=== PATIENT | female | born 1950 | race Asian ===

== ENCOUNTER 2017-11-13 11:02 | Outpatient (CLI) | payer BC ==
--- NOTE | 2017-11-13 12:16 | RAD ---
TWO VIEW CHEST: Indications: Chest pain. Back pain. Comparison: 06-11-04 FINDINGS: The lungs are clear of infiltrate. No effusion. Heart size upper normal and stable. Mild vascular eng orgement. Osseous structures unremarkable. IMPRESSION: No evidence of acute process. POS: [facility]
== END 2017-11-13 11:03 | disposition home or self-care (01) ==
LOC: SCSRAD 11:02
PROVIDERS: ATTEND Family Medicine
DX: R05 Cough (principal)
CPT/HCPCS: 36415; 71046; 80053; 80061; 81001; 82043; 84443; 85025

== ENCOUNTER 2019-04-28 15:12 | Outpatient (CLI) | payer BC, MEDICARE ==
--- NOTE | 2019-04-28 16:18 | MMO ---
Bilateral MAMMO Bilat Screen [facility]. CLINICAL HISTORY: Patient is 68 years old and is seen for screening. The patient has no family history of breast cancer. The patient has no personal history of cancer. VIEWS: The views performed were: bilateral craniocaudal with tomosynthesis and bilateral mediolateral oblique with tomosynthesis. FILMS COMPARED: The present examination has been compared to prior imaging studies performed at [facility] on 07/15/2013, 07/28/2014, 07/27/2015 and 08/22/2016. This study has been interpreted with the assistance of computer-aided detection. MAMMOGRAM FINDINGS: There are scattered fibroglandular densities. There are no suspicious masses, suspicious calcifications, or new areas of architectural distortion. IMPRESSION: THERE IS NO MAMMOGRAPHIC EVIDENCE OF MALIGNANCY. A ROUTINE FOLLOW-UP MAMMOGRAM IN 1 YEAR IS RECOMMENDED. THE RESULTS OF THIS EXAM WERE SENT TO THE PATIENT. ACR BI-RADS Category 1 - Negative MAMMOGRAPHY NOTE: 1. A negative mammogram report should not delay a biopsy if a dominant of clinically suspicious mass is present. 2. Approximately 10% to 15% of breast cancers are not detected by mammography. 3. Adenosis and dense breasts may obscure an underlying neoplasm. Reported by: RENA SAMS MD Electonically Signed: [id number]
== END 2019-04-28 15:13 | disposition home or self-care (01) ==
LOC: BICMAMMO 15:12
PROVIDERS: ATTEND Family Medicine
DX: Z12.31 Encounter for screening mammogram for malignant neoplasm of breast (principal)
CPT/HCPCS: 77063; 77067

== ENCOUNTER 2020-02-15 08:05 | Emergency (ER) | payer BC, MEDICARE ==
[2020-02-15] MEDS ORDERED: Acetaminophen 325 MG TAB ONE (09:15)
--- NOTE | 2020-02-15 09:24 | RAD ---
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 No knee joint effusion. No displaced fracture or d islocation seen. No significant interval change. IMPRESSION: No acute findings.
--- NOTE | 2020-02-15 09:25 | RAD ---
EXAM: 3 views of the left ankle HISTORY: Fall with ankle pain COMPARISON: None FINDINGS: 3 views of the left ankle shows an oblique lucency in the distal fibula on the lateral view only which could represent a small crack in the distal fibula. No tibial fracture is seen. Mild lateral soft tissue swelling is seen. No degenerative changes are present. IMPRESSION: Likely minimally displaced distal fibular fracture.
== END 2020-02-15 11:50 | disposition home or self-care (01) ==
LOC: ERS 08:05
DX: S82.832A Other fracture of upper and lower end of left fibula, initial encounter for closed fracture (principal); W19.XXXA Unspecified fall, initial encounter; E11.9 Type 2 diabetes mellitus without complications
CPT/HCPCS: 27786

== ENCOUNTER 2020-11-03 02:46 | Inpatient (IN) | payer BC, MEDICARE ==
[2020-11-03 03:22] LABS: #Basophils 0.1 thou/uL (0.0-0.2); #Eosinphils 0.3 thou/uL (0.0-0.7); #Lymphocytes 2.6 thou/uL (1.20-3.40); #Monocytes 0.3 thou/uL (0.11-0.59); #Neutrophils 3.9 thou/uL (1.40-6.50); %Basophils 0.8 % (0.0-1.0); %Eosinophils 4.3 % (0.0-10.0); %Monocytes 4.6 % (0.0-10.0); %Neutrophils 54.2 % (42.0-75.0); Hemoglobin 12.2 g/dL (12.0-16.0); Mean Corpuscular HGB CONC 33.6 g/dL (32.0-36.0); Mean Corpuscular Hemoglobin 29.4 pg (27.0-31.0); Mean Corpuscular Volume 87.3 fL (78.0-98.0); Mean Platelet Volume 6.9 fL (7.4-10.4); Platelet Count 274 thou/uL (130-400); RBC Distribution Width 13.4 % (11.5-14.5); Red Blood Cell (RBC) Count 4.15 mill/uL (4.20-5.40); White Blood Cell (WBC) Count 7.1 thou/uL (4.8-10.8)
[2020-11-03 03:37] LABS: ALT (SGPT) 15 U/L (8-55); AST (SGOT) 15 U/L (5-34); Albumin 4.2 g/dL (3.4-4.8); Alkaline Phosphatase 59 U/L (40-110); Anion Gap 14 mmol/L (10-20); BUN (Urea Nitrogen) 7 mg/dL (9.8-20.1); Bilirubin, Total 0.3 mg/dL (0.2-1.2); Calc. Creatinine Clearance 0 mL/min (70-130); Calcium 9.3 mg/dL (7.8-10.44); Carbon Dioxide 19 mmol/L (23-31); Chloride 109 mmol/L (98-107); Globulin 3.1 g/dL (2.4-3.5); Glucose 204 mg/dL (80-115); Potassium 4.3 mmol/L (3.5-5.1); Protein, Total 7.3 g/dL (5.8-8.1); Sodium 138 mmol/L (136-145)
[2020-11-03] MEDS ORDERED: Aspirin Chewable 81 MG TAB ONE (05:08)
[2020-11-03 05:49] VITALS: BMI 39.8
[2020-11-03 11:33] LABS: SARS-CoV-2 PCR by NAA Not Detected (NotDetected)
[2020-11-03] MEDS ORDERED: Dextrose 50% Abboject 50 ML SYRINGE SLOW IVP PRN (12:07)
[2020-11-03] MEDS ORDERED: Dextrose 5% in Water 1,000 ML IV PRN (12:07)
[2020-11-03] MEDS ORDERED: Iopamidol-370 76% 500 ML 1 ML ONE (14:32)
[2020-11-03] MEDS ORDERED: HumaLOG 300 UNITS/3 ML VIAL ONE (17:44)
[2020-11-03] MEDS: HumaLOG 300 UNITS/3 ML VIAL SC PRN (17:47)
[2020-11-03] MEDS ORDERED: sitaGLIPtin Phosphate 25 MG TAB PO SCH (19:45)
[2020-11-03] MEDS ORDERED: Alogliptin 6.25 MG TAB PO SCH (20:30)
[2020-11-03] MEDS: Atorvastatin Calcium 40 MG TAB PO SCH (21:01)
[2020-11-04 04:49] LABS: Hemoglobin A1c 7.5 % (4.0-6.0)
[2020-11-04 05:03] LABS: Cardiac Risk 2.9 (Less than 4.5)
[2020-11-04] MEDS: Losartan 25 MG TAB PO SCH (08:18)
[2020-11-04] MEDS: Aspirin 81 mg Enteric Coated Tablet PO SCH (08:18)
[2020-11-04] MEDS ORDERED: sitaGLIPtin Phosphate 25 MG TAB PO SCH (09:00)
[2020-11-04] MEDS: Alogliptin 6.25 MG TAB PO SCH (11:16)
[2020-11-04] MEDS ORDERED: Glimepiride 4 MG TAB PO SCH ×2 (12:38→13:00)
[2020-11-04] MEDS ORDERED: Clopidogrel Bisulfate 75 MG TAB PO SCH (13:00)
[2020-11-04] MEDS: HumaLOG 300 UNITS/3 ML VIAL SC PRN (17:02)
[2020-11-04] MEDS: Atorvastatin Calcium 40 MG TAB PO SCH (21:22)
[2020-11-05] MEDS: Aspirin 81 mg Enteric Coated Tablet PO SCH (08:25)
[2020-11-05] MEDS: Alogliptin 6.25 MG TAB PO SCH (08:25)
[2020-11-05] MEDS: Clopidogrel Bisulfate 75 MG TAB PO SCH (08:25)
[2020-11-05] MEDS: Losartan 25 MG TAB PO SCH (08:25)
[2020-11-05] MEDS: Glimepiride 4 MG TAB PO SCH (08:25)
[2020-11-05] MEDS: HumaLOG 300 UNITS/3 ML VIAL SC PRN ×2 (11:27→16:40)
[2020-11-05] MEDS ORDERED: Clopidogrel Bisulfate 75 MG TAB PO SCH (12:36)
[2020-11-05] MEDS: Atorvastatin Calcium 40 MG TAB PO SCH (20:39)
[2020-11-06] MEDS: HumaLOG 300 UNITS/3 ML VIAL SC PRN ×4 (05:58→20:34)
[2020-11-06] MEDS: Aspirin 81 mg Enteric Coated Tablet PO SCH (08:52)
[2020-11-06] MEDS: Alogliptin 6.25 MG TAB PO SCH (08:52)
[2020-11-06] MEDS: Losartan 25 MG TAB PO SCH (08:53)
[2020-11-06] MEDS: Glimepiride 4 MG TAB PO SCH (08:53)
[2020-11-06] MEDS: Clopidogrel Bisulfate 75 MG TAB PO SCH (08:53)
[2020-11-06] MEDS: Atorvastatin Calcium 40 MG TAB PO SCH (20:30)
[2020-11-07] MEDS: HumaLOG 300 UNITS/3 ML VIAL SC PRN ×2 (06:14→11:20)
[2020-11-07] MEDS: Aspirin 81 mg Enteric Coated Tablet PO SCH (09:00)
[2020-11-07] MEDS: Alogliptin 6.25 MG TAB PO SCH (09:00)
[2020-11-07] MEDS: Glimepiride 4 MG TAB PO SCH (09:00)
[2020-11-07] MEDS: Losartan 25 MG TAB PO SCH (09:00)
[2020-11-07] MEDS: Clopidogrel Bisulfate 75 MG TAB PO SCH (09:00)
[2020-11-07 16:53] VITALS: BP 130/60; TEMP 98.1
[2020-11-08] MEDS ORDERED: Enoxaparin Sodium 40 MG/0.4 ML SYRINGE SC SCH (09:00)
== END 2020-11-07 20:45 | DRG 65 ==
LOC: ERS 02:46 → ERHOLD 04:17 → 2NO 22:23 → 2SE 11-04 20:20
PROVIDERS: ADMIT Student in an Organized Health Care Education/Training Program; ATTEND Internal Medicine
DX: I63.81 Other cerebral infarction due to occlusion or stenosis of small artery (principal); G81.94 Hemiplegia, unspecified affecting left nondominant side; Z68.41 Body mass index [BMI] 40.0-44.9, adult; R29.705 NIHSS score 5; Z20.822 Contact with and (suspected) exposure to COVID-19; R29.810 Facial weakness; E11.9 Type 2 diabetes mellitus without complications; I11.9 Hypertensive heart disease without heart failure; E78.5 Hyperlipidemia, unspecified; E66.01 Morbid (severe) obesity due to excess calories; I08.1 Rheumatic disorders of both mitral and tricuspid valves; Z96.652 Presence of left artificial knee joint; Z90.710 Acquired absence of both cervix and uterus; Z79.899 Other long term (current) drug therapy; Z79.84 Long term (current) use of oral hypoglycemic drugs
CPT/HCPCS: 36415; 36416; 70450; 70496; 70498; 70551; 80053; 80061; 83036; 84443; 84484; 85025; 93005; 93306; J1815; Q9967; U0003; U0005